=== PATIENT | female | born 2000 | race African-American/Black ===

== ENCOUNTER 2021-07-22 12:41 | Emergency (ER) | payer OTHER, SELFPAY ==
[2021-07-23 16:48] LABS: SARS-CoV-2 PCR by NAA Not Detected (NotDetected)
== END 2021-07-22 13:54 | disposition left against medical advice (07) ==
LOC: CSHERS 12:41
DX: Z53.21 Procedure and treatment not carried out due to patient leaving prior to being seen by health care provider (principal)
CPT/HCPCS: 87081; 87430; 87804; U0003; U0005

== ENCOUNTER 2023-06-01 23:59 | Day surgery (SDC) | payer OTHER ==
[2023-06-02 01:11] VITALS: BMI 33.2
[2023-06-02] MEDS ORDERED: hydrALAZINE 20 MG/ML VIAL SLOW IVP PRN (01:20)
[2023-06-02] MEDS ORDERED: Famotidine 20 MG TAB PO SCH (01:30)
[2023-06-02] MEDS ORDERED: Acetaminophen 500 MG TAB PO SCH (01:45)
[2023-06-02 02:13] LABS: #Eosinphils 0.2 10x3/uL (0.0-0.5); #Monocytes 1.2 10x3/uL (0.0-1.1); #Neutrophils 6.1 10x3/uL (1.5-8.4); %Basophils 0.3 % (0.0-2.0); %Eosinophils 1.9 % (0.0-6.0); %Lymphocytes 17.8 % (18.0-47.0); %Monocytes 13.2 % (0.0-10.0); %Neutrophils 66.3 % (40.0-75.0); Hematocrit 27.8 % (34.9-44.5); Hemoglobin 9.6 g/dL (12.0-15.5); Mean Corpuscular HGB CONC 34.5 g/dL (32.0-36.0); Mean Corpuscular Hemoglobin 30.7 pg (27.0-33.0); Mean Corpuscular Volume 88.8 fl (81.6-98.3); Mean Platelet Volume 11.8 fl (7.4-10.4); Platelet Count 143 10x3/uL (150-450); RBC Distribution Width 13.2 % (11.5-14.5); Red Blood Cell (RBC) Count 3.13 10x6/uL (3.90-5.03); White Blood Cell (WBC) Count 9.2 10x3/uL (3.5-10.5)
[2023-06-02 02:24] LABS: ALT (SGPT) 10 U/L (8-55); AST (SGOT) 14 U/L (5-34); Albumin 3.7 g/dL (3.5-5.0); Alkaline Phosphatase 87 U/L (40-110); Anion Gap 16 mmol/L (10-20); BUN (Urea Nitrogen) 5 mg/dL (7.0-18.7); Bilirubin, Total 0.2 mg/dL (0.2-1.2); Calc. Creatinine Clearance 172 mL/min (70-130); Carbon Dioxide 20 mmol/L (22-29); Chloride 104 mmol/L (98-107); Estimated GFR 129; Globulin 2.4 g/dL (2.4-3.5); Glucose 113 mg/dL (70-105); Potassium 3.6 mmol/L (3.5-5.1); Protein, Total 6.1 g/dL (6.0-8.3); Sodium 136 mmol/L (136-145)
== END 2023-06-02 03:00 | disposition home or self-care (01) ==
LOC: CSHLD/OP 23:59
PROVIDERS: ATTEND Family Medicine
DX: O99.891 Other specified diseases and conditions complicating pregnancy (principal); R10.12 Left upper quadrant pain; Z79.899 Other long term (current) drug therapy; Z3A.25 25 weeks gestation of pregnancy
CPT/HCPCS: 36415; 80053; 85025

== ENCOUNTER 2023-07-08 17:50 | Day surgery (SDC) | payer OTHER ==
[2023-07-08 18:16] VITALS: BMI 33.2
[2023-07-08] MEDS ORDERED: hydrALAZINE 20 MG/ML VIAL SLOW IVP PRN (18:46)
[2023-07-08] MEDS ORDERED: Lactated Ringer's 1,000 ML IV SCH (19:00)
[2023-07-08] MEDS ORDERED: Ondansetron PF 4 MG/2 ML Vial IVP SCH (19:00)
[2023-07-08] MEDS ORDERED: Acetaminophen 500 MG TAB PO SCH (19:00)
[2023-07-08 19:52] LABS: Bilirubin Neg (Negative); Blood, Urine Negative (Negative); Clarity Clear (Clear); Glucose, Urine (Dipstick) Normal (Negative); Ketone, Urine 5 mg/dL (Negative); Leukocyte 500 (Negative); Nitrite Negative (Negative); Protein, Urine (Dipstick) 15 mg/dl (Neg-Trace); Urobilinogen Normal mg/dL (Less than 2)
[2023-07-08 19:53] LABS: Bacteria/HPF 1+ HPF (None Seen); CAUTI Indications for Culture Pregnancy; Mucous/LPF Rare LPF (<2+); RBC/HPF 0-3 HPF (0-3); Squamous Epithelial 0-3 HPF (0-3)
[2023-07-08 19:54] LABS: Urine Culture Reflex Yes Yes
[2023-07-08 20:11] LABS: #Eosinphils 0.1 10x3/uL (0.0-0.5); #Monocytes 0.8 10x3/uL (0.0-1.1); #Neutrophils 7.9 10x3/uL (1.5-8.4); %Basophils 0.1 % (0.0-2.0); %Eosinophils 0.9 % (0.0-6.0); %Lymphocytes 8.6 % (18.0-47.0); %Monocytes 8.1 % (0.0-10.0); Hematocrit 26.1 % (34.9-44.5); Hemoglobin 8.9 g/dL (12.0-15.5); Mean Corpuscular HGB CONC 34.1 g/dL (32.0-36.0); Mean Corpuscular Hemoglobin 30.2 pg (27.0-33.0); Mean Corpuscular Volume 88.5 fl (81.6-98.3); Mean Platelet Volume 11.8 fl (7.4-10.4); Platelet Count 132 10x3/uL (150-450); RBC Distribution Width 13.1 % (11.5-14.5); Red Blood Cell (RBC) Count 2.95 10x6/uL (3.90-5.03); White Blood Cell (WBC) Count 9.7 10x3/uL (3.5-10.5)
[2023-07-08 20:20] LABS: ALT (SGPT) 9 U/L (8-55); AST (SGOT) 13 U/L (5-34); Albumin 3.4 g/dL (3.5-5.0); Alkaline Phosphatase 117 U/L (40-110); Anion Gap 13 mmol/L (10-20); BUN (Urea Nitrogen) Less than 4 mg/dL (7.0-18.7); Bilirubin, Total 0.4 mg/dL (0.2-1.2); Calc. Creatinine Clearance 201 mL/min (70-130); Carbon Dioxide 22 mmol/L (22-29); Chloride 107 mmol/L (98-107); Estimated GFR 134; Globulin 2.6 g/dL (2.4-3.5); Glucose 92 mg/dL (70-105); Potassium 3.5 mmol/L (3.5-5.1); Sodium 138 mmol/L (136-145)
[2023-07-08 20:35] LABS: SARS-CoV-2 NAA Rapid Test Not Detected (NotDetected)
[2023-07-08] MEDS ORDERED: CEFAZOLIN 1 GM VIAL SLOW IVP SCH (21:30)
== END 2023-07-08 23:30 | disposition home or self-care (01) ==
LOC: CSHLD/OP 17:50
PROVIDERS: ATTEND Family Medicine
DX: O21.2 Late vomiting of pregnancy (principal); O26.853 Spotting complicating pregnancy, third trimester; H54.40 Blindness, one eye, unspecified eye; O98.813 Other maternal infectious and parasitic diseases complicating pregnancy, third trimester; A74.9 Chlamydial infection, unspecified; O99.283 Endocrine, nutritional and metabolic diseases complicating pregnancy, third trimester; E86.0 Dehydration; O99.891 Other specified diseases and conditions complicating pregnancy; R00.0 Tachycardia, unspecified; Z3A.30 30 weeks gestation of pregnancy
CPT/HCPCS: 36415; 80053; 81001; 85025; 87086; J0690

== ENCOUNTER 2023-08-08 14:34 | Inpatient (IN) | payer OTHER ==
[2023-08-08 16:17] VITALS: BMI 35.2
[2023-08-08] MEDS ORDERED: Ondansetron PF 4 MG/2 ML Vial IVP PRN ×4 (17:12→21:56)
[2023-08-08] MEDS ORDERED: Diphenoxylate HCl/Atropine Tablet PO PRN (17:12)
[2023-08-08] MEDS ORDERED: Misoprostol 200 MCG TAB PR PRN (17:12)
[2023-08-08] MEDS ORDERED: Famotidine/PF 20 mg/2ml Vial SLOW IVP PRN (17:12)
[2023-08-08] MEDS ORDERED: Promethazine HCl 25 MG/ML VIAL IM PRN ×2 (17:12→21:56)
[2023-08-08] MEDS ORDERED: Bicitra 30 ML UDCUP PO PRN (17:12)
[2023-08-08] MEDS ORDERED: Carboprost 250 MCG/ML AMP IM PRN (17:12)
[2023-08-08] MEDS ORDERED: hydrALAZINE 20 MG/ML VIAL SLOW IVP PRN ×2 (17:12→21:56)
[2023-08-08] MEDS ORDERED: Tranexamic Acid 1,000 MG/10 ML VIAL IVP PRN (17:12)
[2023-08-08] MEDS ORDERED: Methylergonovine 0.2 MG/ML VIAL IM PRN (17:12)
[2023-08-08] MEDS ORDERED: Lactated Ringer's 1,000 ML IV SCH (17:15)
[2023-08-08] MEDS ORDERED: Oxytocin 30 units/NS 500 ML 500 ML IV SCH (17:15)
[2023-08-08] MEDS ORDERED: CEFAZOLIN 2 GM in Sodium Chloride 0.9% 100 ML IVPB SCH (17:15)
[2023-08-08 17:24] LABS: Hemoglobin 8.8 g/dL (12.0-15.5); Mean Corpuscular HGB CONC 33.8 g/dL (32.0-36.0); Mean Corpuscular Hemoglobin 29.8 pg (27.0-33.0); Mean Corpuscular Volume 88.1 fl (81.6-98.3); Mean Platelet Volume 12.8 fl (7.4-10.4); Platelet Count 142 10x3/uL (150-450); RBC Distribution Width 12.8 % (11.5-14.5); Red Blood Cell (RBC) Count 2.95 10x6/uL (3.90-5.03); White Blood Cell (WBC) Count 8.1 10x3/uL (3.5-10.5)
[2023-08-08 18:03] LABS: Syphilis Antibody Nonreactive (Nonreactive); Syphilis Antibody Index 0.08 S/CO (<1.00 Non-Reactive)
[2023-08-08 18:04] LABS: HBSAg Index 0.24 S/CO (0-0.99); Hep B Surf Ag - L&D Non-Reactive S/CO (NonReactive)
[2023-08-08] MEDS ORDERED: Promethazine HCl 25 MG SUPP PR PRN (18:22)
[2023-08-08] MEDS ORDERED: Naloxone HCl 0.4 mg/ml Vial IV PRN (18:22)
[2023-08-08] MEDS ORDERED: fentaNYL 50 mcg/mL 1 mL Vial SLOW IVP PRN (18:22)
[2023-08-08] MEDS ORDERED: Naloxone HCl 0.4 mg/ml Vial IVP PRN ×2 (18:22)
[2023-08-08] MEDS ORDERED: Meperidine HCl/PF 25 MG (1 mL) VIAL SLOW IVP PRN (18:22)
[2023-08-08] MEDS ORDERED: Moisturizing Cream (Eucerin) 113 GM JAR TOP PRN (18:22)
[2023-08-08] MEDS ORDERED: HYDROmorphone 0.5 MG/0.5 ML SYRINGE SLOW IVP PRN (18:22)
[2023-08-08] MEDS ORDERED: diphenhydrAMINE 50 MG/ML VIAL IVP PRN (18:22)
[2023-08-08] MEDS ORDERED: Communication Order-Pharmacy FS SCH ×2 (18:30→22:00)
[2023-08-08] MEDS: Ketorolac Tromethamine 30 MG (1 mL) VIAL IVP SCH (18:54)
[2023-08-08] MEDS: Promethazine HCl 25 MG/ML VIAL IM PRN (19:14)
[2023-08-08] MEDS ORDERED: Bisacodyl 10 MG SUPP PR PRN (21:56)
[2023-08-08] MEDS ORDERED: diphenhydrAMINE 25 MG CAP PO PRN (21:56)
[2023-08-08] MEDS ORDERED: Simethicone Chewable 80 MG TAB PO PRN (21:56)
[2023-08-08] MEDS ORDERED: Lanolin Ointment 7 GM TUBE TOP PRN (21:56)
[2023-08-09] MEDS: Ondansetron PF 4 MG/2 ML Vial ONE (00:22)
[2023-08-09] MEDS: PHENYLEPHRINE-NS 100 MCG/ML 10 ML SYRINGE ONE (00:22)
[2023-08-09] MEDS: Oxytocin 10 UNITS/ML VIAL ONE (00:22)
[2023-08-09] MEDS: Morphine PF 10 MG/10 ML VIAL ONE (00:22)
[2023-08-09] MEDS: Dexamethasone 4 mg/ml Vial ONE (00:22)
[2023-08-09] MEDS: Docusate 100 MG CAP PO SCH ×2 (00:23→08:09)
[2023-08-09] MEDS: Ferrous Sulfate 325 MG TAB PO SCH ×2 (00:23→08:09)
[2023-08-09] MEDS: ePHEDrine Sulfate 50 MG/10 ML VIAL ONE (00:23)
[2023-08-09] MEDS: Ketorolac Tromethamine 30 MG (1 mL) VIAL IVP SCH (00:28)
[2023-08-09] MEDS ORDERED: Ketorolac Tromethamine 30 MG (1 mL) VIAL IVP PRN (01:00)
[2023-08-09 03:32] LABS: Hematocrit 27.1 % (34.9-44.5); Hemoglobin 9.3 g/dL (12.0-15.5); Mean Corpuscular HGB CONC 34.3 g/dL (32.0-36.0); Mean Corpuscular Hemoglobin 29.8 pg (27.0-33.0); Mean Corpuscular Volume 86.9 fl (81.6-98.3); Mean Platelet Volume 12.4 fl (7.4-10.4); Platelet Count 163 10x3/uL (150-450); RBC Distribution Width 12.7 % (11.5-14.5); Red Blood Cell (RBC) Count 3.12 10x6/uL (3.90-5.03); White Blood Cell (WBC) Count 14.8 10x3/uL (3.5-10.5)
[2023-08-09] MEDS ORDERED: Meperidine HCl/PF 25 MG (1 mL) VIAL IM PRN (06:30)
[2023-08-09] MEDS: Prenatal Vitamin 1 TAB PO SCH (08:09)
[2023-08-09] MEDS: HYDROcodone/Acetaminophen 5/325 mg Tablet PO PRN (11:34)
[2023-08-09] MEDS: Ibuprofen 800 MG TAB PO SCH (15:06)
[2023-08-09] MEDS: Boostrix 0.5 ML (Tdap) VIAL (>/=7 yrs of age) IM ONE (20:30)
[2023-08-10] MEDS: HYDROcodone/Acetaminophen 5/325 mg Tablet PO PRN (04:22)
[2023-08-12 08:08] VITALS: BP 134/85; TEMP 98.3
== END 2023-08-12 08:25 | disposition home or self-care (01) | DRG 788 ==
LOC: CSHERS 14:34 → CSHLD/OP 14:37 → CSHLD 17:12 → CSHPP 21:26
PROVIDERS: ADMIT Family Medicine; ATTEND Family Medicine
PROC: 10D00Z1 Extraction of Products of Conception, Low, Open Approach (ICD-10-PCS; principal; 2023-08-08)
DX: O60.13X0 Preterm labor second trimester with preterm delivery third trimester, not applicable or unspecified (principal); O32.1XX0 Maternal care for breech presentation, not applicable or unspecified; Z3A.35 35 weeks gestation of pregnancy; Z37.0 Single live birth; O77.0 Labor and delivery complicated by meconium in amniotic fluid
CPT/HCPCS: 36415; 51702; 85027; 86780; 86850; 86900; 86901; 87340; 88307; 99285; J1100; J1885; J2274; J2405; J2550; J2590

== ENCOUNTER 2023-10-24 17:08 | Emergency (ER) | payer OTHER ==
[2023-10-24] MEDS ORDERED: Ketorolac Tromethamine 30 MG (1 mL) VIAL ONE (17:44)
== END 2023-10-24 19:17 | disposition home or self-care (01) ==
LOC: CSHERS 17:08
DX: J02.9 Acute pharyngitis, unspecified (principal); Z55.6 Problems related to health literacy
CPT/HCPCS: 87081; 87430; 96372; 99283; J1885

== ENCOUNTER 2024-07-22 04:33 | Emergency (ER) | payer OTHER ==
[2024-07-22] MEDS ORDERED: cefTRIAXone (ROCEPHIN) 500 MG VIAL ONE (04:54)
[2024-07-22] MEDS ORDERED: Sterile Water 10 ML ONE (04:54)
[2024-07-22 05:03] LABS: #Basophils Less than 0.03 10x3/uL (0.0-0.2); #Eosinophils 0.22 10x3/uL (0.0-0.5); #Monocytes 0.61 10x3/uL (0.0-1.1); #Neutrophils 2.46 10x3/uL (1.5-8.4); %Basophils 0.4 % (0.0-2.0); %Eosinophils 3.9 % (0.0-6.0); %Lymphocytes 41.1 % (18.0-47.0); %Monocytes 10.8 % (0.0-10.0); %Neutrophils 43.6 % (40.0-75.0); Hemoglobin 12.2 g/dL (12.0-15.5); Mean Corpuscular HGB CONC 33.9 g/dL (32.0-36.0); Mean Corpuscular Volume 88.7 fL (81.6-98.3); Mean Platelet Volume 11.1 fL (7.4-10.4); Platelet Count 235 10x3/uL (150-450); RBC Distribution Width 12.9 % (11.5-14.5); Red Blood Cell (RBC) Count 4.06 10x6/uL (3.90-5.03); White Blood Cell (WBC) Count 5.64 10x3/uL (3.5-10.5)
[2024-07-22 05:11] LABS: BHCG - Serum Negative (NEGATIVE); Pregs Control Bar Appear? YES (CONTROL BAR)
[2024-07-22 05:12] LABS: Pregs Control Background? CLEAR/WHITE (CLR/WHITE)
== END 2024-07-22 05:29 | disposition home or self-care (01) ==
LOC: CSHERS 04:33
DX: N92.0 Excessive and frequent menstruation with regular cycle (principal); Z20.2 Contact with and (suspected) exposure to infections with a predominantly sexual mode of transmission
CPT/HCPCS: 84703; 85025; 96372; 99284; J0696

== ENCOUNTER 2025-03-27 09:45 | Outpatient (CLI) | payer OTHER | END 2025-03-27 09:46 | disposition home or self-care (01) | LOC: CSHULT 09:45 | PROVIDERS: ATTEND Family Medicine | DX: O09.92 Supervision of high risk pregnancy, unspecified, second trimester (principal); Z3A.21 21 weeks gestation of pregnancy | CPT/HCPCS: 76805 ==